=== PATIENT | male | born 1960 | race Caucasian/White ===

== ENCOUNTER 2017-03-27 10:39 | Emergency (ER) | payer SELFPAY ==
[2017-03-27 10:55] VITALS: TEMP 98.3
[2017-03-27] MEDS ORDERED: LIDOCAINE 1% W/ EPINEPHRINE 20 ML VIAL INJ ONE (10:56)
[2017-03-27] MEDS ORDERED: TETANUS,DIPHTHERIA,PERTUSSIS 1 EA SYG IM ONE (10:56)
[2017-03-27] MEDS ORDERED: CHLORHEXIDINE GLUCONATE 4 % 15 ML UD TOP ONE (10:57)
[2017-03-27] MEDS ORDERED: NEOMYCIN-BACITRACIN-POLYMYXIN 0.9 GM UD TOP ONE (11:30)
--- NOTE | 2017-03-27 11:42 | ED.PDOC ---
History of Present Illness - General Chief Complaint: Laceration Stated Complaint: laceration Time Seen by Provider: 03/27/17 10:53 Source: patient, RN notes reviewed, Vital Signs reviewed Exam Limitations: no limitations - History of Present Illness Initial Comments: Patient comes in with c/o laceration to his left lower leg. He was working on tearing up a deck and a piece of board caught his leg. Unsure if it was the board or a screw that cut him through his jeans. No other injuries. No numbness or tingling distally. Timing/Duration: just prior to arrival Severity: moderate Location: extremities - L lateral calf Improving Factors: rest Worsening Factors: movement Associated Symptoms: denies symptoms Allergies/Adverse Reactions: Allergies NO KNOWN ALLERGY Allergy (Unverified 09/05/14 07:13) Home Medications: Ambulatory Orders NK [NK] 03/27/17 Review of Systems - Review of Systems Constitutional: States: no symptoms reported Respiratory: States: no symptoms reported Cardiology: States: no symptoms reported Gastrointestinal/Abdominal: States: no symptoms reported Musculoskeletal: States: no symptoms reported Skin: States: see HPI Neurological: States: no symptoms reported. Denies: numbness, paresthesia, tingling All other Systems: No Change from Baseline Past Medical History (General) - Patient Medical History Hx Stroke: No Hx Cardiac Disorders: Yes Hx Congestive Heart Failure: No Hx Diabetes: No Hx MRSA: No - Vaccination History Hx Tetanus, Diphtheria Vaccination: - unknown Hx Influenza Vaccination: No - Social History Hx Tobacco Use: Yes - 2 ppd Family Medical History - Family History Mother Living Status: Hx Family;Other: brain tumor Father Living Status: Hx Family;Other: Suicide Physical Exam - Physical Exam General Appearance: Alert, Comfortable, No apparent distress, Well Developed, Well Groomed, Well Hydrated, Well Nourished Respiratory: no respiratory distress Extremity: normal range of motion, non-tender, no pedal edema Neurologic: no motor/sensory deficits, alert, normal mood/affect, oriented x 3 Skin Exam: warm/dry, normal color Skin Problem Location: lower extremities - L lateral calf Skin Character: other - 12cm abrasion leading into a 7.5cm linear laceration of mid to lower lateral calf. Minimal bleeding. No foreign body. Comments: Vital Signs 03/27/17 10:52 Temperature 98.3 F Pulse Rate [ 102 H Right Brachial] Respiratory 20 Rate Blood Pressure 112/75 [Right Arm] O2 Sat by Pulse 94 L Oximetry Procedures - Laceration/Wound Repair Left Lower Lateral Calf Wound Length (cm): 7.5 Wound's Depth, Shape: superficial, linear Wound Explored: no foreign body removed Irrigated w/ Saline (cc's): 200 Betadine Prep?: No - scrubbed with Hibiclens & saline Anesthesia: Lidocaine w/ Epi Volume Anesthetic (cc's): 10 Wound Debrided: minimal Wound Repaired With: sutures Suture Size/Type: 4:0 Number of Sutures: 12 Layer Closure?: No Sterile Dressing Applied?: Yes Splint Applied?: No Sling Applied?: No Departure - Departure Clinical Impression: Laceration of left lower leg without complication Qualifiers: Encounter type: initial encounter Qualified Code(s): S81.812A - Laceration without foreign body, left lower leg, initial encounter Time of Disposition: 11:45 Disposition: Discharge to Home or Self Care Condition: Good Departure Forms: ED Discharge - Pt. Copy, Patient Portal Self Enrollment Instructions: DI for Laceration Repair -- Simple Diet: resume usual diet Activity: increase activity as tolerated Home Medications: Ambulatory Orders NK [NK] 03/27/17 Additional Instructions: Follow up in 7-10 days for suture removal Keep wound completely dry X 48 hours Dress twice a day with antibiotic ointment.
[2017-03-27 11:53] VITALS: BP 126/92; O2SAT 92
== END 2017-03-27 11:53 | disposition home or self-care (01) ==
LOC: ER 10:39
DX: S81.812A Laceration without foreign body, left lower leg, initial encounter (principal); Z23 Encounter for immunization; Z87.891 Personal history of nicotine dependence; W22.8XXA Striking against or struck by other objects, initial encounter; Y92.9 Unspecified place or not applicable